=== PATIENT | female | born 1980 | race Caucasian/White ===

== ENCOUNTER 2017-01-19 08:19 | Emergency (ER) | payer BC ==
[~2017-01-19] VITALS: Ht 160 cm; Wt 77.2 kg
[~2017-01-19 08:19] MED LIST: ESCI10TA PO; HYDR-3702 PO
--- OUTSIDE RECORDS SUMMARY | 2017-01-19 08:25 | XMS REPORT | Continuity of Care Document ---
Author Author [facility] Organization [facility] Address Unknown Phone Unavailable Allergies Active Description Code Type Severity Reaction Onset Reported/Identified Relationship to Patient Clinical Status Yes No Known Allergies [id number] N/A N/A Medications Problems Date Dx Coded Attending Type Code Diagnosis Diagnosed By 10/23/2015 W M25.561 Acute pain of right knee 10/31/2015 W M25.561 Acute pain of right knee 12/06/2015 W M25.561 Acute pain of right knee 12/11/2015 W M25.561 Acute pain of right knee 01/13/2016 W M25.561 Acute pain of right knee Procedures Code [place] [address] X-RAY EXAM OF KNEE 3 10/23/2015 92011 OFFICE/OUTPATIENT VISIT EST 10/23/2015 78370 OFFICE/OUTPATIENT VISIT EST 10/31/2015 Results Encounters ACCT No. Visit Date/Time Discharge Status Pt. Type Provider Facility Loc./Unit Complaint [id number] 10/31/2015 12:23:00 2015 03:30:03 DIS Outpatient DARÍO GOODSON
--- NOTE | 2017-01-19 09:14 | NUR ---
PT UNABLE TO SIT FOR LONG BEFORE SHE FEELS THE NEED TO BE UP MOVING AROUND AGAIN. PT DENIES ANY OTHER SWOLLEN AREA ON HER BODY. STATES SHE HAS BEEN PULLING LOTS OF TICKS OFF OF HER & HAS HAD SOME TICKS CRAWLING ON HER BUT NONE WERE ATTACHED. HUSB AT BEDSIDE AT THIS TIME. CL
[2017-01-19 09:16] LABS: BASOPHILS % (AUTO) 0 % (0-2); EOSINOPHILS # (AUTO) 0.3 10^3uL; EOSINOPHILS % (AUTO) 5 % (0-4); LYMPHOCYTES # (AUTO) 0.7 X10^3; MEAN CORPUSCULAR HEMOGLOBIN 30.2 PG (26.0-34.0); MEAN CORPUSCULAR HGB CONC 33.3 g/dL (31.0-37.0); MEAN CORPUSCULAR VOLUME 91 FL (80-100); MEAN PLATELET VOLUME 10.4 FL (6.0-9.5); MONOCYTES # (AUTO) 0.2 X10^3; MONOCYTES % (AUTO) 3 % (3-11); NEUTROPHILS # (AUTO) 5.2 X10^3; NEUTROPHILS % (AUTO) 81 % (51-67); PLATELET COUNT 159 10^3uL (150-450); WHITE BLOOD COUNT 6.44 10^3uL (4.0-11.0)
[2017-01-19 09:31] LABS: ALBUMIN 4.3 g/dL (3.4-5.0); ANION GAP 16.4 MEQ/L (3-15); TOTAL PROTEIN 7.4 g/dL (6.4-8.5)
--- NOTE | 2017-01-19 09:36 | NUR ---
PT ALSO DENIES HAVING ANY SPIDER OR OTHER BITES OF ANY KIND. CL
[2017-01-19] MEDS ORDERED: DOXY100C42 PO (10:42)
[2017-01-19 11:05] VITALS: BP 142/78
== END 2017-01-19 11:00 | disposition home or self-care (01) ==
LOC: EDUNIT# 08:19 → ED 08:21
DX: R50.9 Fever, unspecified (principal); R21 Rash and other nonspecific skin eruption; R20.8 Other disturbances of skin sensation
CPT/HCPCS: 36415; 80053; 85025; 86140; 86617; 86757; 87070; 87651; 99282; 99283